=== PATIENT | female | born 1970 | race Caucasian/White ===

== ENCOUNTER 2017-01-19 12:12 | Emergency (ER) | payer MEDICAID ==
[2017-01-19] MEDS ORDERED: Acetaminophen 500 MG Tab PO ONE (12:30)
--- NOTE | 2017-01-19 12:38 | EDM.PDOC ---
ED HPI GENERAL MEDICAL PROBLEM - General Chief Complaint: Skin Complaint Stated Complaint: SKIN IRRIATION Time Seen by Provider: 01/19/17 12:20 Source of Information: Reports: Patient, Old Records History Limitations: Reports: No Limitations - History of Present Illness INITIAL COMMENTS - FREE TEXT/NARRATIVE: 46 yo female with a pHx of polysubstance abuse and who admits to use of marijuana today presents with about a 3 day hx of progressive redness/ induration to the R inner arm. Also has a many day hx of progressive swelling and pain under the nail of the L index finger. Has not been to the clinic for this. Has not taken anything for pain today. Onset: Gradual Onset Date: 01/12/17 Duration: Day(s): Location: Reports: Upper Extremity, Left, Upper Extremity, Right Quality: Reports: Pressure Severity: Moderate Improves with: Reports: None Worsens with: Reports: Other (time) Context: Reports: Other (street drug abuse) Associated Symptoms: Reports: No Other Symptoms. 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 History: Psychiatric History: Reports: Anxiety, Bipolar, Depression, Hallucinations, Suicidal Ideation - Infectious Disease History Infectious Disease History: Reports: Chicken Pox, Measles, Mumps - Past Surgical History GI Surgical History: Reports: Appendectomy Social & Family History - Family History Family Medical History: Noncontributory - Tobacco Use Smoking Status *Q: Current Every Day Smoker Years of Tobacco use: 23 Packs/Tins Daily: 1 Used Tobacco, but Quit: No Second Hand Smoke Exposure: Yes - Caffeine Use Caffeine Use: Reports: Coffee - Alcohol Use Days Per Week of Alcohol Use: 1 Number of Drinks Per Day: 6 Total Drinks Per Week: 6 - Recreational Drug Use Recreational Drug Use: Yes Drug Use in Last 12 Months: Yes Recreational Drug Type: Reports: Marijuana/Hashish Recreational Drug Use Frequency: Daily - Living Situation & Occupation Living situation: Reports: Occupation: Unemployed ED ROS GENERAL - Review of Systems Review Of Systems: See Below Constitutional: Reports: No Symptoms. Denies: Fever HEENT: Reports: No Symptoms Respiratory: Reports: No Symptoms Cardiovascular: Reports: No Symptoms GI/Abdominal: Reports: No Symptoms : Reports: No Symptoms Musculoskeletal: Reports: No Symptoms Skin: Reports: Erythema, Change in Color Neurological: Reports: No Symptoms Psychiatric: Reports: No Symptoms ED EXAM, SKIN/RASH Exam: See Below Exam Limited By: No Limitations General Appearance: Alert, WD/WN, No Apparent Distress Eye Exam: Bilateral Eye: Normal Inspection Ears: Normal External Exam, Normal Canal, Hearing Grossly Normal, Normal TMs Nose: Normal Inspection, Normal Mucosa, No Blood Throat/Mouth: Normal Inspection, Normal Lips, Normal Oropharynx, Normal Voice, No Airway Compromise Head: Atraumatic, Normocephalic Neck: Normal Inspection Respiratory/Chest: No Respiratory Distress, Lungs Clear, Normal Breath Sounds, No Accessory Muscle Use Cardiovascular: Regular Rate, Rhythm, No Edema GI/Abdominal: Normal Bowel Sounds, Soft, Non-Tender, No Distention Back Exam: Normal Inspection. No: CVA Tenderness (R), CVA Tenderness (L) Extremities: Normal Inspection, Normal Range of Motion, Non-Tender, No Pedal Edema Neurological: Alert, Oriented, CN II-XII Intact, Normal Cognition, No Motor/ Sensory Deficits Psychiatric: Normal Affect, Normal Mood Skin: Warm, Dry, Intact, Erythema, Increased Warmth Location, Skin: Upper Extremity, Right (R medial, proximal humeral area.), Upper Extremity, Left (L index finger) Characteristics: Macular, Confluent Associated features: Warmth, Tenderness, Induration Lymphatic: No Adenopathy Course - Vital Signs Last Recorded V/S: Last Vital Signs Temp 36.4 C 01/19/17 12:12 Pulse 70 01/19/17 12:12 Resp 18 01/19/17 12:12 BP 113/82 01/19/17 12:12 Pulse Ox 100 01/19/17 12:12 - Orders/Labs/Meds Meds: Medications Discontinued Medications Generic Name Dose Route Start Last Admin Trade Name Lazaro PRN Reason Stop Dose Admin Acetaminophen 1,000 mg 01/19/17 12:30 Tylenol Extra Strength PO 01/19/17 12:31 ONETIME ONE Departure - Departure Time of Disposition: 12:45 Disposition: Home, Self-Care 01 Condition: Fair Clinical Impression: Cellulitis of arm, right, Felon of finger - Discharge Information Prescriptions: Cephalexin 500 mg PO Q6H #30 capsule Referrals: Felipe Pacheco MD [Primary Care Provider] - Care Plan Goals: Take cephalexin 500 mg every 6 hrs. Apply moist heat to both infected areas several times/day. Take acetaminophen 1000 mg every 6 hrs as needed for pain relief. F/U with your doctor in the clinic for recheck before the weekend, call for an appt.
[2017-01-19 12:54] VITALS: BP 115/80
== END 2017-01-19 12:52 | disposition home or self-care (01) ==
LOC: FB.ED 12:12
DX: L03.012 Cellulitis of left finger (principal); L03.113 Cellulitis of right upper limb; F41.9 Anxiety disorder, unspecified; F31.9 Bipolar disorder, unspecified; F17.210 Nicotine dependence, cigarettes, uncomplicated; Z90.49 Acquired absence of other specified parts of digestive tract; Z79.899 Other long term (current) drug therapy
CPT/HCPCS: 99283; A9270

== ENCOUNTER 2017-03-13 01:55 | Emergency (ER) | payer MEDICAID ==
[2017-03-13] MEDS ORDERED: Lidocaine 1% 30 ML SDV INFILT ONE (01:56)
[2017-03-13] MEDS ORDERED: Acetaminophen/HYDROcodone 325-5 MG Tab PO ONE (03:18)
[2017-03-13] MEDS ORDERED: Diphtheria,Pertussis(Acell),Tetanus Vaccine 0.5 ML SDV IM ONE (03:22)
[2017-03-13 05:47] VITALS: BP 132/98
--- NOTE | 2017-03-15 09:24 | ER ---
DATE SEEN: 03/13/2017 Wanda is a 46-year-old woman who smokes, and who was attempting to open a window by putting a hand against a pane, the pane broke, and she has a 3-cm hockey- stick laceration to her dominant right hand, the dorsum of the MP joint of the thumb. There is no tendon involvement. On inspection, there is no tendon involvement. It was carefully washed and then injected with lidocaine 1%. This is quite difficult for her. She did groan and cry and move her whole body, on the injection, but finally the pain relented and she was able to rest. The wound was then liberally cleansed with surgical scrub brush and water and then closed with interrupted 4-0 Ethilon, 7 stitches placed. The patient tolerated this well after anesthesia was in place. ASSESSMENT: Laceration, right thumb; palmar thenar thumb laceration without involvement of tendinous structure or neural structures. PLAN: The patient was dismissed with Vicodin 8 tablets 1 q.4 hours p.r.n. pain and also use Tylenol and ibuprofen. Follow up with doctor in 14 days to have sutures removed. Keep clean. Use bacitracin. /[id number] PAULINA/FAINA
== END 2017-03-13 03:50 | disposition home or self-care (01) ==
LOC: FB.ED 01:55
DX: S61.011A Laceration without foreign body of right thumb without damage to nail, initial encounter (principal); W22.8XXA Striking against or struck by other objects, initial encounter; Z23 Encounter for immunization
CPT/HCPCS: 12002; 90471; 90715; 99282; A4217; A9270; 40830

== ENCOUNTER 2019-04-01 16:09 | Emergency (ER) | payer SELFPAY ==
[2019-04-01] MEDS ORDERED: Naproxen 250 MG Tab PO ONE (16:10)
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
[2019-04-01 17:03] VITALS: BP 122/93; PULSE 92
== END 2019-04-01 16:59 | disposition home or self-care (01) ==
LOC: FB.ED 16:09
DX: G89.29 Other chronic pain (principal); M25.561 Pain in right knee; F32.9 Major depressive disorder, single episode, unspecified; F17.210 Nicotine dependence, cigarettes, uncomplicated; Z76.0 Encounter for issue of repeat prescription; Z91.09 Other allergy status, other than to drugs and biological substances; Z79.899 Other long term (current) drug therapy
CPT/HCPCS: 99283; A9270

== ENCOUNTER 2019-12-20 11:34 | Emergency (ER) | payer MEDICAID ==
[2019-12-20] MEDS ORDERED: Acetaminophen 500 MG Tab PO ONE (11:53)
[2019-12-20] MEDS ORDERED: Ibuprofen 800 MG Tab PO ONE (11:53)
[2019-12-20 11:56] VITALS: BP 127/97; PULSE 87
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
--- NOTE | 2019-12-20 13:45 | CR ---
INDICATION: Left elbow injury, fell with left elbow pain. LEFT ELBOW: Three views of the left elbow were obtained 12/20/19 - comparisons. Very minimal hypertrophic changes noted at the medial elbow joint compartment. A fracture, dislocation or other significant bone or joint abnormality such as joint effusion, was not identified. MTDD
== END 2019-12-20 13:00 | disposition home or self-care (01) ==
LOC: FB.ED 11:34
DX: S46.912A Strain of unspecified muscle, fascia and tendon at shoulder and upper arm level, left arm, initial encounter (principal); F41.9 Anxiety disorder, unspecified; F32.9 Major depressive disorder, single episode, unspecified; Z91.09 Other allergy status, other than to drugs and biological substances; Z79.899 Other long term (current) drug therapy; X58.XXXA Exposure to other specified factors, initial encounter
CPT/HCPCS: 73080-LT; 99283; A9270-GY

== ENCOUNTER 2023-08-29 02:02 | Emergency (ER) | payer MEDICAID ==
[2023-08-29 02:36] LABS: BASOPHILS ABSOLUTE AUTO 0.1 x10-3/uL (0.0-0.1); BASOPHILS PERCENT AUTO 0.8 % (0.2-1.5); EOSINOPHILS PERCENT AUTO 0.5 % (0.6-8.1); HEMATOCRIT 36.8 % (34.2-48.2); HEMOGLOBIN 12.4 g/dL (11.4-15.5); LYMPHOCYTES ABSOLUTE AUTO 2.2 x10-3/uL (1.0-4.4); LYMPHOCYTES PERCENT AUTO 32.2 % (18.4-52.1); MEAN CORPUSCULAR HEMOGLOBIN 30.2 pg (23.9-33.9); MEAN CORPUSCULAR HGB CONC 33.6 g/dL (31.9-34.8); MEAN CORPUSCULAR VOLUME 89.9 fL (76.7-100.5); MEAN PLATELET VOLUME 7.6 fL (7.1-12.4); MONOCYTES ABSOLUTE AUTO 0.5 x10-3/uL (0.3-1.0); MONOCYTES PERCENT AUTO 7.9 % (4.4-15.7); NEUTROPHILS PERCENT AUTO 58.6 % (30.8-76.2); PLATELET COUNT,PLT 253 x10(3)uL (151-488); RED BLOOD CELL COUNT 4.09 x10(6)uL (3.60-5.20); RED CELL DISTRIBUTION WIDTH 13.8 % (12.3-16.5); WHITE BLOOD CELL COUNT,WBC 6.8 x10-3/uL (3.0-10.3)
[2023-08-29 02:42] LABS: BLOOD UREA NITROGEN,BUN 15 mg/dL (7-18); CALCIUM 9.1 mg/dL (8.6-10.2); CARBON DIOXIDE,CO2 28 mmol/L (21-32); CHLORIDE,CL 102 mmol/L (100-110); ESTIMATED GFR 68 mL/min (>60); GLUCOSE RANDOM 127 mg/dL (80-116); POTASSIUM,K 3.8 mmol/L (3.5-5.3); SODIUM,NA 139 mmol/L (135-145)
[2023-08-29 02:48] LABS: A/G RATIO 0.8; ALANINE AMINOTRANSFERASE,ALT 63 U/L (12-36); ALBUMIN 3.5 g/dL (3.5-5.2); ALKALINE PHOSPHATASE 56 IU/L (56-112); ASPARTATE AMNIOTRANSFERASE,AST 43 IU/L (5-25); BILIRUBIN TOTAL 0.3 mg/dL (0.1-1.3); PROTEIN TOTAL,TP 7.9 g/dL (6.0-8.0)
[2023-08-29] MEDS ORDERED: Sodium Chloride 0.9% 1,000 ML IV SCH (03:00)
[2023-08-29] MEDS: Sodium Chloride 0.9% 1,000 ML IV STA (03:00)
[2023-08-29] MEDS: Ondansetron 4 MG/2 ML SDV IVPUSH ONE (03:29)
[2023-08-29] MEDS: Ketorolac 30 MG/ML SDV IVPUSH ONE (03:29)
[2023-08-29 03:59] VITALS: BP 106/66; PULSE 66
== END 2023-08-29 05:16 ==
LOC: FB.ED 02:02
DX: R07.9 Chest pain, unspecified (principal); I95.9 Hypotension, unspecified; Z79.899 Other long term (current) drug therapy; Z87.891 Personal history of nicotine dependence
CPT/HCPCS: 36415; 70450; 72100; 73562; 80053; 83880; 84484; 85025; 93005; 93010; 96361; 96374; 96375; 99283; 99285; J1885; J2405; J7030